=== PATIENT | male | born 1960 | race Caucasian/White ===

== ENCOUNTER → 2017-11-04 | Outpatient (REF) | payer BC ==
[2017-11-04 18:28] LABS: APPEARANCE, URINE CLEAR (CLEAR); BACTERIA, URINE AUTO 1+ (NEGATIVE); BILIRUBIN, URINE AUTO NEGATIVE (NEGATIVE); BLOOD, URINE BLOOD NEGATIVE (NEGATIVE); CALCIUM OXALATE CRYSTALS SMALL; COLOR, URINE YELLOW (YELLOW); GLUCOSE, URINE (UA) AUTO NEGATIVE (NEGATIVE); KETONE, URINE AUTO NEGATIVE (NEGATIVE); LEUKOCYTE ESTERASE, URINE AUTO TRACE (NEGATIVE); MUCUS, URINE SMALL (NEGATIVE); NITRITE, URINE AUTO NEGATIVE (NEGATIVE); PROTEIN, URINE AUTO NEGATIVE (NEGATIVE); RBC, URINE AUTO 6 /HPF (0-3); SPECIFIC GRAVITY URINE AUTO 1.023 (1.002-1.035); SQUAMOUS EPITHELIAL CELL UR AU 0 /HPF (0-6); UROBILINOGEN, URINE AUTO 0.2 mg/dL (0.0-2.0); WBC, URINE AUTO 2 /HPF (0-3)
== END ==
LOC: M SMT 17:12
DX: R31.29 Other microscopic hematuria (principal)
CPT/HCPCS: 81001

== ENCOUNTER 2017-11-24 08:57 | Day surgery (SDC) | payer BC ==
[2017-11-24 09:35] LABS: INR 0.92; PROTHROMBIN TIME 12.4 SECONDS (12.1-14.4)
[2017-11-24] MEDS: LR 1,000 ML IV (10:10)
[2017-11-24] MEDS ORDERED: LIDOCAINE 2% INJ 100 MG/5 ML SDV (FOR ANES.) As Ordered (10:11)
[2017-11-24] MEDS ORDERED: MIDAZOLAM INJ 2 MG/2 ML VIAL (J2250) As Ordered (10:11)
[2017-11-24] MEDS ORDERED: PROPOFOL 200 MG/20 ML VIAL As Ordered (10:11)
[2017-11-24] MEDS ORDERED: fentaNYL 100 MCG/2 ML INJECTION (J3010) As Ordered (10:12)
[2017-11-24] MEDS ORDERED: dexameTHASONE 4 MG/ML 1ML VIAL (J1100) As Ordered (11:47)
[2017-11-24] MEDS ORDERED: ONDANSETRON 4MG/2ML VIAL (J2405) As Ordered (11:47)
[2017-11-24] MEDS: CONRAY-60 60% 50ML VIAL (Q9961) As Ordered (12:10)
[2017-11-24] MEDS ORDERED: ONDANSETRON 4MG/2ML VIAL (J2405) IV (13:45)
[2017-11-24] MEDS ORDERED: PERCOCET 5MG/325MG TAB PO (13:45)
[2017-11-24] MEDS ORDERED: LR 1,000 ML IV (13:45)
[2017-11-24] MEDS ORDERED: fentaNYL 100 MCG/2 ML INJECTION (J3010) IV (13:45)
[2017-11-24] MEDS ORDERED: ACETAMINOPHEN 650MG ER TAB (TYLENOL ARTHRITIS) PO (13:45)
[2017-11-24] MEDS ORDERED: BACTRIM 160MG/800MG DS TAB PO (21:00)
== END 2017-11-24 14:35 | disposition home or self-care (01) ==
LOC: M SDC 08:57
DX: N13.2 Hydronephrosis with renal and ureteral calculous obstruction (principal); I10 Essential (primary) hypertension; E27.9 Disorder of adrenal gland, unspecified; M12.9 Arthropathy, unspecified; Z79.899 Other long term (current) drug therapy; Z87.81 Personal history of (healed) traumatic fracture
CPT/HCPCS: 52356

== ENCOUNTER → 2022-02-05 | Outpatient (REF) | payer BC ==
[~2022-02-05] MED LIST: ACET650T61 PO; BACT800T5 PO; LOSA25TA13; OXYC1TAB23 PO
== END ==
LOC: M SFHCDERM 17:46
PROVIDERS: ATTEND Nurse Practitioner Family
DX: D49.2 Neoplasm of unspecified behavior of bone, soft tissue, and skin (principal)